=== PATIENT | male | born 1975 | race Caucasian/White ===

== ENCOUNTER 2020-10-18 11:07 | Outpatient (REF) | payer OTHER, SELFPAY ==
[2020-10-18 13:00] LABS: MANUAL DIFF FLAG NO
[2020-10-18 13:13] LABS: Basophils Percent Auto 0.5 % (0-2); Eosinophils Absolute Auto 0.2 X10*3/uL (0.0-0.4); Eosinophils Percent Auto 3.8 % (0-4); Hematocrit 44.2 % (42-52); Imm Gran Abs Auto 0.03 X10*3/uL (0.00-0.03); Imm Gran Pct Auto 0.5 % (0.0-0.4); Lymphocytes Absolute Auto 2.1 X10*3/uL (1.2-4.9); Lymphocytes Percent Auto 34.5 % (20-40); Mean Corpuscular HGB Conc 33.9 g/dl (31.0-36.0); Mean Corpuscular Volume 91.3 fL (80-98); Mean Platelet Volume 8.5 fL (9.4-12.4); Monocytes Absolute Auto 0.4 X10*3/uL (0.1-1.2); Monocytes Percent Auto 6.6 % (2-11); Neutrophils Absolute Auto 3.3 X10*3/uL (2.0-8.3); Neutrophils Percent Auto 54.1 % (45-73); Platelet Count 217 X10*3/uL (160-400); Red Blood Count 4.84 X10*6/uL (4.60-5.80); Red Cell Distribution Width 12.1 % (11.0-16.0); White Blood Count 6.1 X10*3/uL (4.8-10.8)
[2020-10-18 13:39] LABS: Alanine Aminotransferase 40 U/L (0-40); Albumin Level 4.5 g/dL (3.5-5.0); Alkaline Phosphatase 65 U/L (39-117); Anion Gap 14 (12-20); Aspartate Amino Transferase 22 U/L (5-37); Bilirubin Total 1.1 mg/dL (0.0-1.0); Blood Urea Nitrogen 14 mg/dL (9-16); Calcium 9.2 mg/dL (8.4-10.2); Carbon Dioxide 27 mmol/L (22-29); Chloride 106 mmol/L (96-108); Cholesterol 201 mg/dL; Estimated Glomerular Filt Rate > 60; Glucose Random 99 mg/dL (60-115); HDL Cholesterol 40 mg/dL; LDL Cholesterol Calculated 122 mg/dl; Sodium 143 mmol/L (135-145); Total Protein 7.1 g/dL (6.5-8.0); Triglycerides 199 mg/dL
[2020-10-18 14:00] LABS: Prostate Specific Antigen 1.04 ng/mL (<0.05-4.0)
== END 2020-10-18 11:08 | disposition home or self-care (01) ==
LOC: HO.10HDL 11:07
PROVIDERS: PCP Internal Medicine Medical Oncology; Visit Provider Internal Medicine Medical Oncology
DX: Z00.00 Encounter for general adult medical examination without abnormal findings (principal); J45.909 Unspecified asthma, uncomplicated; E66.9 Obesity, unspecified; Z87.891 Personal history of nicotine dependence
CPT/HCPCS: 36415; 80053; 80061; 84153; 85025

== ENCOUNTER 2021-01-31 09:34 | Outpatient (REF) | payer OTHER, SELFPAY ==
--- NOTE | ~2021-01-31 | US_ITS ---
EXAMINATION: US ABDOMEN COMPLETE CLINICAL INFORMATION: Nausea with vomiting. Right upper quadrant pain COMPARISON: None TECHNIQUE: Real-time imaging of the abdominal viscera. Technically difficult study secondary to bowel gas and body habitus. FINDINGS: The exam due to body habitus and gas. PANCREAS: Most of the pancreas is obscured by overlying gas. ABDOMINAL AORTA: The proximal, mid, and distal segments are normal in caliber. INFERIOR VENA CAVA: IVC is not visualized. LIVER: The liver is normal in size. The liver contour is normal. There is increased liver echogenicity. No focal hepatic lesion. There is no intrahepatic biliary duct dilatation seen. GALLBLADDER: Gallbladder wall thickness measures 0.18 cm. The gallbladder is physiologically distended without evidence of stones, sludge, polyps, wall thickening or pericholecystic fluid. COMMON BILE DUCT: Normal in caliber measuring 0.6 cm in diameter. 0.55 cm RIGHT KIDNEY: Normal. No hydronephrosis. No renal calculi or focal parenchymal lesions. The kidney measures 11.8 cm in maximum dimension. LEFT KIDNEY: Normal. No hydronephrosis. No renal calculi or focal parenchymal lesions. The kidney measures 11.1 cm in maximum dimension. SPLEEN: Normal. The spleen measures 11.4 cm in maximum dimension. FREE FLUID: None. US/US abdomen complete IMPRESSION: Limited abdominal exam secondary to gas and body habitus. Hepatic steatosis without focal lesion. Rest of the abdominal ultrasound is unremarkable.
== END 2021-01-31 09:35 | disposition home or self-care (01) ==
LOC: HO.HMGCX 09:34
PROVIDERS: Visit Provider Internal Medicine Medical Oncology
DX: R11.2 Nausea with vomiting, unspecified (principal); R68.81 Early satiety
CPT/HCPCS: 76700

== ENCOUNTER 2021-02-08 09:36 | Outpatient (REF) | payer OTHER, SELFPAY ==
--- NOTE | ~2021-02-08 | FL_ITS ---
EXAMINATION: XR FLUOROSCOPY UPPER GI WITH AIR CLINICAL INFORMATION: Early satiety. COMPARISON: None. TECHNIQUE: Upper GI was performed using thin and thick barium and effervescent granules. FINDINGS: There is gastroesophageal reflux. No hernia is seen. The stomach and duodenum are normal appearing. No fold thickening, mass, ulcer or stricture is seen. FLUOROSCOPY TIME: 0.7 minutes. DOSE AREA PRODUCT: 6.8 Gy-cm2. SAVED FLUOROSCOPIC IMAGES: 23. FL/FL upper GI w air IMPRESSION: Gastroesophageal reflux. Otherwise unremarkable exam.
== END 2021-02-08 09:37 | disposition home or self-care (01) ==
LOC: HO.XRAY 09:36
PROVIDERS: Visit Provider Internal Medicine Medical Oncology
DX: R11.2 Nausea with vomiting, unspecified (principal); R68.81 Early satiety
CPT/HCPCS: 74246

== ENCOUNTER 2021-03-30 08:48 | Day surgery (SDC) | payer OTHER, SELFPAY ==
--- NOTE | 2021-03-29 08:32 | P.CONAN_ITS ---
Documented by User: Gillian Pantoja NP 03/29/21 08:33 HPI - Anesthesia Eval Consult details Narrative: 45yo M for Upper Endoscopy [facility] Past Medical History Medical History Asthma GERD (gastroesophageal reflux disease) Seasonal allergies Surgical History Surgical History (Updated 03/30/21 @ 09:45 by Rema Lobo MD) Hx of fracture of lower leg Hx of hand surgery Social History Social History Patient Tobacco Use Status: Former Tobacco user Quit Date: 2006 Tobacco use type: Cigarette Smoked in Last 30 Days: No Use of substances other than those prescribed or required for medical reasons: No Are you DNR?: No Advance Directives: No Advance Directives Information Provided: Yes Meds Allergies Allergy/AdvReac Type Severity Reaction Status Date / Time Penicillins [PCN] Allergy Unknown Verified 03/30/21 09:54 Sulfa (Sulfonamide Allergy Unknown Verified 03/30/21 09:54 Antibiotics) environmental Allergy Sneezing Uncoded 03/30/21 09:54 oil base Allergy Sneezing Uncoded 03/30/21 09:54 tree fruits Allergy Itching Uncoded 03/30/21 09:54 Home Medications Medication Instructions Recorded Confirmed Last Taken Type Men's One Daily 03/30/21 03/30/21 Unknown History Zyrtec 03/30/21 Unknown History omeprazole 20 mg 1 cap PO DAILY 03/30/21 03/30/21 Unknown History capsule,delayed release Exam Exam Date and Time: March 29, 2021 0832 Pertinent Lab Results Pertinent Lab Results: Laboratory Tests 10/18/20 10/18/20 11:12 11:12 WBC 6.1 Hgb 15.0 Hct 44.2 Plt Count 217 Sodium 143 Potassium 4.0 Chloride 106 Carbon Dioxide 27 BUN 14 Creatinine 1.06 Assessment and Plan Assessment Anesthesia Assessment: Chart Reviewed Documented by User: Rema Lobo MD 03/30/21 09:55 [facility] Past Medical History Medical History Asthma GERD (gastroesophageal reflux disease) Seasonal allergies Family History Family history of problems with anesthesia: No Surgical History Surgical History (Updated 03/30/21 @ 09:45 by Rema Lobo MD) Hx of fracture of lower leg Hx of hand surgery History of Problems with Anesthesia: No Social History Social History Patient Tobacco Use Status: Former Tobacco user Quit Date: 2006 Tobacco use type: Cigarette Smoked in Last 30 Days: No Use of substances other than those prescribed or required for medical reasons: No Are you DNR?: No Advance Directives: No Advance Directives Information Provided: Yes Meds Allergies Allergy/AdvReac Type Severity Reaction Status Date / Time Penicillins [PCN] Allergy Unknown Verified 03/30/21 09:54 Sulfa (Sulfonamide Allergy Unknown Verified 03/30/21 09:54 Antibiotics) environmental Allergy Sneezing Uncoded 03/30/21 09:54 oil base Allergy Sneezing Uncoded 03/30/21 09:54 tree fruits Allergy Itching Uncoded 03/30/21 09:54 Home Medications Medication Instructions Recorded Confirmed Last Taken Type Men's One Daily 03/30/21 03/30/21 Unknown History Zyrtec 03/30/21 Unknown History omeprazole 20 mg 1 cap PO DAILY 03/30/21 03/30/21 Unknown History capsule,delayed release Exam Height,Weight and Vital Signs: Height 5 ft 10 in Weight 103.419 kg Vital Signs Temp Pulse Resp BP Pulse Ox 03/30/21 09:41 97.1 F 83 16 129/86 97 Airway Mallampati Class: II TM Dist: >3cm Neck ROM: Full Loose/Missing/Broken Teeth: No Heart: RRR Lungs: CTAB Assessment and Plan Assessment Anesthesia Assessment: Anesthesia Plan Discussed Final Anesthetic Review Family History of Problems with Anesthesia: No History of Problems with Anesthesia: No NPO: Yes ASA Class: II Final Preanesthetic Review: No Changes in Pt Med Stat, Meds/Allgs Chart Reviewed, Consent Obtained/Reviewed and Anes Risks/Benef Reviewed Patient Risk: Low Procedure Risk: Low Assessment/Block/Sedation in SS: Assess/Block/Sedation-SS Anesthetic Plan Anesthetic Plan: MAC: Disposition: Standard PACU
[2021-03-30 09:31] VITALS: BMI 32.7
[2021-03-30 09:41] VITALS: BP 129/86; PULSE 83; RESP 16; TEMP 36.2; O2SAT 97
[2021-03-30] MEDS: Lactated Ringers 1,000 ML 100 ML IVCONT (09:51)
[2021-03-30 10:47] VITALS: BP 102/67; PULSE 85; RESP 20; TEMP 36.7; O2SAT 98
--- NOTE | 2021-03-30 10:50 | PM.OP ---
Brief Operative Note Date of Service: 03/30/21 Pre-op diagnosis: GERD Post-op diagnosis: other (Hiatal hernia, Gastric polyps) Procedure: EGD with biopsies Surgeon: Tristin Moss Anesthesia: MAC Was an Optimization Engineer used for this Procedure?: No Estimated blood loss (mL): 2.0 Pathology: other (A. Gastric antrum B. Gastric polyps C. EG Junction at 36cm) Condition: stable Disposition: PACU
[2021-03-30 11:01] VITALS: BP 112/72; PULSE 93; RESP 18; TEMP 36.7; O2SAT 96
--- NOTE | 2021-03-31 12:18 | OP_ITS ---
SURGEON: Tristin Moss MD INDICATIONS: The patient presents for evaluation of gastroesophageal reflux and abdominal discomfort. Full consent was obtained from him for this, including risks of bleeding and perforation. PREOPERATIVE DIAGNOSIS: POSTOPERATIVE DIAGNOSIS: PROCEDURE PERFORMED: Esophagogastroduodenoscopy with biopsies. ESTIMATED BLOOD LOSS: COMPLICATIONS: ANESTHESIA: Monitored anesthesia care. ASSISTANTS: SPECIMENS: PREOPERATIVE DIAGNOSES: Gastroesophageal reflux and abdominal discomfort. POSTOPERATIVE DIAGNOSES: Gastroesophageal reflux, abdominal discomfort, hiatal hernia, gastric polyps, rule out gastritis. DESCRIPTION OF PROCEDURE: The patient was placed in the left lateral decubitus position. The Olympus video gastroscope was passed in the posterior oropharynx and upper esophagus under direct vision. The scope was passed slowly into the distal esophagus. The gastroesophageal junction appeared at 36 cm. There was no sign of any esophagitis nor any definitive Gallo's mucosa. There was some slight irregularity. The scope entered into the stomach. There was a small hiatal hernia. The scope was advanced to the pylorus and the duodenum was cannulated in the descending portion. The duodenum including the bulb appeared normal without mass or ulceration. The scope was withdrawn back in the stomach. The gastric antrum had some slight areas of erythema, but no erosions or ulceration. There was good peristalsis. The scope was retroflexed visualizing the proximal stomach carefully, which appeared normal, without any sign of mass or ulceration other than multiple hyperplastic-appearing gastric polyps. Scope was straightened. Biopsies were obtained from the gastric antrum. I also obtained biopsies from some of the gastric polyps. The scope was withdrawn back to the esophagus. Biopsies were obtained at the EG junction at 36 cm. Proximal to this, the esophageal mucosa appeared normal. The scope was withdrawn from the patient. He tolerated the procedure well and was returned to recovery area in stable condition. IMPRESSION: 1. Hiatal hernia, history of gastroesophageal reflux, rule out Gallo esophagus. 2. Gastric polyps. PLAN: The results of biopsies will be checked. If Helicobacter pylori is present in the gastric biopsies, I would not necessarily treat that at this time. He was advised to continue his daily omeprazole for symptomatic relief of reflux. He will use dicyclomine or [id number] anti-gas medicine for the right lateral abdominal discomfort. He was advised to see me in several months for a followup visit. MD FLORIN Barillas/SAEED / [id number]
== END 2021-03-30 11:54 | disposition home or self-care (01) ==
PROVIDERS: PCP Internal Medicine Medical Oncology; Visit Provider Internal Medicine
PROC: 0DJ08ZZ Inspection of Upper Intestinal Tract, Via Natural or Artificial Opening Endoscopic (ICD-10-PCS; CPT 43235; principal; 2021-03-30 10:10)
DX: K21.9 Gastro-esophageal reflux disease without esophagitis (principal); K31.7 Polyp of stomach and duodenum; J45.909 Unspecified asthma, uncomplicated; Z79.899 Other long term (current) drug therapy; Z88.0 Allergy status to penicillin; Z88.2 Allergy status to sulfonamides; Z87.891 Personal history of nicotine dependence; K44.9 Diaphragmatic hernia without obstruction or gangrene
CPT/HCPCS: 43239; 88305; 88342

== ENCOUNTER 2023-01-01 09:21 | Day surgery (SDC) | payer OTHER, SELFPAY ==
[2023-01-01 10:25] VITALS: BMI 30.1
[2023-01-01 10:41] VITALS: BP 118/78; PULSE 76; RESP 16; TEMP 36.2; O2SAT 97
[2023-01-01] MEDS: Lactated Ringers 1,000 ML 50 ML IVCONT (10:46)
--- NOTE | 2023-01-01 11:17 | HO.ANESPROP2 ---
HPI - Anesthesia Eval Consult details Narrative: 47 yo M presenting for colonoscopy [facility] Past Medical History Medical History Seasonal allergies GERD (gastroesophageal reflux disease) Asthma Family History Family history of problems with anesthesia: No Surgical History Surgical History Hx of fracture of lower leg Hx of hand surgery History of Problems with Anesthesia: No Social History Social History Patient Tobacco Use Status: Former Tobacco user Quit Date: 15 years ago Tobacco use type: Cigarette Use of substances other than those prescribed or required for medical reasons: No Are you DNR?: No Advance Directives: No Advance Directives Information Provided: Yes Meds Allergies Allergy/AdvReac Type Severity Reaction Status Date / Time Penicillins [PCN] Allergy Unknown Verified 01/01/23 10:44 Sulfa (Sulfonamide Allergy Unknown Verified 01/01/23 10:44 Antibiotics) environmental Allergy Sneezing Uncoded 01/01/23 10:44 oil base Allergy Sneezing Uncoded 01/01/23 10:44 tree fruits Allergy Itching Uncoded 01/01/23 10:44 Active Medications: Current Medications Lactated Ringer's (Lr) 1,000 mls @ 50 mls/hr IVCONT .Q20H JACQUIE Last Admin: 01/01/23 10:46 Dose: 50 mls/hr Sodium Biphosphate/Sodium Phosphate (Sodium Phosphate,Garfield-Dibasic 133 Ml Enema) 133 ml IA ONCE PRN PRN Reason: Poor Colonoscopy Prep Results Home Medications Medication Instructions Recorded Confirmed Last Taken Type Zyrtec 1 tab PO DAILY 03/30/21 01/01/23 12/31/22 History omeprazole 20 mg capsule,delayed 1 cap PO DAILY 03/30/21 01/01/23 12/31/22 History release Exam Exam Date and Time: January 01, 2023 1117 Height,Weight and Vital Signs: Height 5 ft 10 in Weight 95.254 kg Last Vital Signs Temp 97.2 F 01/01/23 10:41 Pulse 76 01/01/23 10:41 Resp 16 01/01/23 10:41 BP 118/78 01/01/23 10:41 Pulse Ox 97 01/01/23 10:41 O2 Del Method Room Air 01/01/23 10:41 Airway Mallampati Class: I TM Dist: >3cm Neck ROM: Full Loose/Missing/Broken Teeth: No Heart: S1S2 Lungs: CTAB Assessment and Plan Assessment Anesthesia Assessment: Anesthesia Plan Discussed and Chart Reviewed Final Anesthetic Review Family History of Problems with Anesthesia: No History of Problems with Anesthesia: No NPO: Yes ASA Class: II Final Preanesthetic Review: No Changes in Pt Med Stat, Meds/Allgs Chart Reviewed, Consent Obtained/Reviewed and Anes Risks/Benef Reviewed Patient Risk: Low Procedure Risk: Low Anesthetic Plan Anesthetic Plan: MAC: and Agree w/ Assess. and Plan Disposition: Standard PACU
[2023-01-01 12:18] VITALS: BP 89/39; PULSE 77; RESP 16; TEMP 36.2; O2SAT 97
--- NOTE | 2023-01-01 12:21 | P.BOP_ITS ---
Brief Operative Note Date of Service: 01/01/23 Pre-op diagnosis: Screening Post-op diagnosis: other (Polyps) Procedure: Colonoscopy to the cecum and TI with biopsies of ? of ascending colon polyp, and cold snare polypectomy of ascending colon polyp Surgeon: Tristin Moss MD Anesthesia: MAC Was an Food Services Director used for this Procedure?: No Estimated blood loss (mL): 2.0 Pathology: other (A. Ascending colon, ? polyp B. Ascending colon polyp) Condition: stable Disposition: PACU
[2023-01-01 12:33] VITALS: BP 100/40; PULSE 77; RESP 16; TEMP 36.2; O2SAT 100
--- NOTE | 2023-01-01 12:37 | OP_ITS ---
DATE OF SERVICE: 01/01/2023 SURGEON: Tristin Moss MD INDICATIONS: The patient presents for evaluation of colorectal cancer screening. Full consent has been obtained from him for this, including risks of bleeding and perforation. PREOPERATIVE DIAGNOSIS: Colorectal cancer screening. POSTOPERATIVE DIAGNOSIS: PROCEDURE PERFORMED: Colonoscopy to cecum and terminal ileum with biopsy and removal of possible polyp, and cold snare polypectomy. ESTIMATED BLOOD LOSS: COMPLICATIONS: ANESTHESIA: Monitored anesthesia care. ASSISTANTS: SPECIMENS: POSTOPERATIVE DIAGNOSES: Colorectal cancer screening, colon polyps, internal hemorrhoids. DESCRIPTION OF PROCEDURE: The patient was placed in the left lateral decubitus position. The digital rectal exam revealed no abnormalities. The Olympus video pediatric colonoscope was entered into the rectum and advanced to the cecum. In the cecum, I did identify a normal-appearing cecal pouch with appendical orifice and a normal-appearing ileocecal valve. The terminal ileum was cannulated and appeared normal. The scope was slowly withdrawn back in the colon. The entire cecum and ileocecal valve appeared normal. The scope was then slowly withdrawn assessing all mucosal surfaces carefully. Preparation was excellent. In the mid-ascending colon was a somewhat edematous fold which I did not think definitively represented a polyp, but multiple biopsies were obtained from it. Just distal to that was an approximately 5 mm polyp, which was removed by cold snare polypectomy and recovered by suction. The polypectomy site appeared clean, without any sign of residual polyp nor significant bleeding. This was placed in a different container. I did not visualize any other polyps, colitis, nor angiodysplasia. In the rectum, scope was retroflexed visualizing small internal hemorrhoids, but no other pathology. The rectal mucosa appeared normal. The scope was straightened and withdrawn from the patient. He tolerated the procedure well and was returned to the recovery area in stable condition. IMPRESSION: 1. Colon polyp, status post cold snare polypectomy. 2. Question of ascending colon polyp, status post biopsies. 3. Internal hemorrhoids. PLAN: The results of the pathology will be checked, If the ascending colon biopsies are not adenomatous but the polyp is a tubular adenoma, I would recommend a followup colonoscopy within 5 years. If the ascending colon biopsies are adenomatous I would recommend a repeat colonoscopy within 1 to 2 years to reinspect the area and be sure no further tissue needs to be removed. If both areas are nonadenomatous I would then recommend a repeat colonoscopy in 10 years for further screening. He was advised not to use any aspirin and NSAIDs for 1 week. He was advised to undergo a repeat upper endoscopy in 2024, in regard to the previous finding of Gallo's esophagus. This has been discussed with his . MD FLORIN Barillas/SAEED / [id number] MTDD
== END 2023-01-01 14:08 | disposition home or self-care (01) ==
PROVIDERS: PCP Internal Medicine Medical Oncology; Visit Provider Internal Medicine
PROC: 0DJD8ZZ Inspection of Lower Intestinal Tract, Via Natural or Artificial Opening Endoscopic (ICD-10-PCS; CPT 45378; principal; 2023-01-01 10:40)
DX: Z12.11 Encounter for screening for malignant neoplasm of colon (principal); D12.2 Benign neoplasm of ascending colon; K64.8 Other hemorrhoids; K21.9 Gastro-esophageal reflux disease without esophagitis; J45.909 Unspecified asthma, uncomplicated; Z79.899 Other long term (current) drug therapy; Z87.891 Personal history of nicotine dependence
CPT/HCPCS: 45385; 45380; 88305

== ENCOUNTER 2023-10-05 08:53 | Outpatient (REF) | payer OTHER, SELFPAY ==
[2023-10-05 10:02] LABS: Basophils Percent Auto 0.6 % (0-2); Eosinophils Absolute Auto 0.2 X10*3/uL (0.0-0.4); Eosinophils Percent Auto 3.4 % (0-4); Hematocrit 44.4 % (42.0-52.0); Hemoglobin 15.2 g/dl (14.0-18.0); Imm Gran Abs Auto 0.02 X10*3/uL (0.00-0.03); Imm Gran Pct Auto 0.3 % (0.0-0.4); Lymphocytes Absolute Auto 2.3 X10*3/uL (1.2-4.9); Lymphocytes Percent Auto 35.3 % (20-40); MANUAL DIFF FLAG SCAN; Mean Corpuscular HGB Conc 34.2 g/dl (31.0-36.0); Mean Corpuscular Hemoglobin 31.3 pg (27.0-33.0); Mean Corpuscular Volume 91.4 fL (80.0-98.0); Mean Platelet Volume 8.8 fL (9.4-12.4); Monocytes Absolute Auto 0.4 X10*3/uL (0.1-1.2); Monocytes Percent Auto 6.3 % (2-11); Neutrophils Absolute Auto 3.5 x10*3/uL (2.0-8.3); Neutrophils Percent Auto 54.1 % (45-73); PLT CLUMP 1; Red Blood Count 4.86 X10*6/uL (4.60-5.80); SCAN SMEAR FLAG 1
[2023-10-05 10:42] LABS: Alanine Aminotransferase 40 U/L (0-40); Albumin Level 4.5 g/dL (3.5-5.0); Alkaline Phosphatase 58 U/L (39-117); Anion Gap 12 (12-20); Aspartate Amino Transferase 23 U/L (5-37); Bilirubin Total 0.6 mg/dL (0.0-1.0); Blood Urea Nitrogen 13 mg/dL (9-16); Carbon Dioxide 30 mmol/L (22-29); Chloride 104 mmol/L (96-108); Cholesterol 223 mg/dL (<200); Estimated Glomerular Filt Rate > 60; Glucose Fasting 99 mg/dL (60-99); HDL Cholesterol 43 mg/dL (>40); LDL Cholesterol Calculated 128 mg/dL (<100); Potassium 4.2 mmol/L (3.3-5.1); Sodium 142 mmol/L (135-145); Total Protein 7.2 g/dL (6.5-8.0); Triglycerides 263 mg/dL (<150)
[2023-10-05 10:51] LABS: Platelet Count 222 X10*3/uL (160-400); White Blood Count 6.5 X10*3/uL (4.8-10.8)
[2023-10-05 10:52] LABS: SLIDE REVIEW VERIFIED
== END 2023-10-05 08:54 | disposition home or self-care (01) ==
LOC: HO.LAB 08:53
PROVIDERS: PCP Internal Medicine Medical Oncology; Visit Provider Internal Medicine Medical Oncology
DX: Z12.5 Encounter for screening for malignant neoplasm of prostate (principal); E66.9 Obesity, unspecified; N40.0 Benign prostatic hyperplasia without lower urinary tract symptoms
CPT/HCPCS: 36415; 80053; 80061; 84153; 85025

== ENCOUNTER 2023-12-07 16:49 | Outpatient (REF) | payer OTHER, SELFPAY ==
[2023-12-07 17:30] LABS: Appearance Urine Cloudy; Color Urine Yellow; Glucose Urine UA Negative (Negative); Leukocyte Esterase Urine Small (1+) (Negative); Nitrite Urine Negative (Negative); PH 5.5 (5.0-9.0); Specific Gravity - Urine >= 1.030 (1.005-1.025); UMIC TRIGGER UA YES; Urine Blood Large (3+) (Negative); Urine Ketones Negative (Negative); Urine Protein 30 (1+) mg/dL (Neg-Trace)
[2023-12-07 17:37] LABS: Bacteria Urine None Seen (None Seen); Hyaline Casts Urine 0-2 /LPF (0-2); RBC Urine >20 /HPF (0-2); WBC Urine 21-50 /HPF (0-5)
== END 2023-12-07 16:50 | disposition home or self-care (01) ==
LOC: HO.LAB 16:49
PROVIDERS: PCP Internal Medicine Medical Oncology; Visit Provider Internal Medicine Medical Oncology
DX: R31.9 Hematuria, unspecified (principal); R82.79 Other abnormal findings on microbiological examination of urine
CPT/HCPCS: 81001; 87086; 87088; 87186

== ENCOUNTER 2023-12-08 14:41 | Emergency (ER) | payer OTHER, SELFPAY ==
[2023-12-08 14:43] VITALS: BP 141/101; PULSE 90; RESP 18; TEMP 36.1; O2SAT 98; BMI 32.5
--- NOTE | 2023-12-08 14:48 | ED.MALEGU ---
HPI - Male Genitourinary General Chief complaint: Urogenital-Male Stated complaint: UTI Time Seen by Provider: 12/08/23 15:33 Source: patient Mode of arrival: ambulatory Limitations: no limitations History of Present Illness ED Provider: Edie Dee APRN HPI Narrative: 48 yo male previously healthy here with complaints of urinary urgency/hematuria, dysuria, feeling like he is not emptying his bladder completely since evening. NO abdominal pain, flank pain, fever or vomiting. No testicular pain, penile discharge, rashes/lesions. NO new sexual partners. Offered STI testing-declined. Related Data Home Medications ?Medication ?Instructions ?Recorded ?Confirmed Zyrtec 1 tab PO DAILY 03/30/21 01/01/23 omeprazole 20 mg capsule,delayed 1 cap PO DAILY 03/30/21 01/01/23 release Previous Rx's ?Medication ?Instructions ?Recorded levofloxacin 750 mg tablet 750 mg PO DAILY 7 days #7 tabs 12/08/23 Allergies Allergy/AdvReac Type Severity Reaction Status Date / Time Penicillins [PCN] Allergy Unknown Verified 12/08/23 14:46 Sulfa (Sulfonamide Allergy Unknown Verified 12/08/23 14:46 Antibiotics) environmental Allergy Sneezing Uncoded 01/01/23 10:44 oil base Allergy Sneezing Uncoded 01/01/23 10:44 tree fruits Allergy Itching Uncoded 01/01/23 10:44 Review of Systems Review of Systems: Yes all other systems are reviewed and are negative Constitutional: Constitutional: Reports no additional constitutional complaints, Denies body ache(s), Denies chills, Denies fever(s), Denies headache(s) and Denies weakness Eyes: Eyes: Reports no additional eye complaints and Denies change in vision ENT: Reports system reviewed and no additional complaints, except as documented, Denies dizziness, Denies headache(s), Denies nasal congestion, Denies nasal discharge and Denies neck pain Cardiovascular: Cardiovascular: Reports no additional cardiovascular complaints, Denies chest pain, Denies leg edema and Denies dyspnea Respiratory: Respiratory: Reports no additional respiratory complaints, Denies cough and Denies dyspnea Gastrointestinal: Gastrointestinal: Reports no additional gastrointestinal complaints, Denies abdominal pain, Denies diarrhea, Denies nausea and Denies vomiting Genitourinary: Genitourinary: Reports hematuria, Reports dysuria, Denies flank pain, Denies penile discharge, Denies scrotal swelling, Denies testicular mass, Denies testicular pain, Reports urinary frequency, Reports urinary hesitancy, Denies urinary incontinence and Reports urinary urgency Musculoskeletal: Musculoskeletal: Reports no additional musculoskeletal complaints, Denies back pain, Denies arthralgias, Denies joint swelling, Denies neck pain, Denies numbness and Denies tingling Integumentary/Breasts: Skin/Breast: Reports system reviewed and no additional complaints, except as docu and Denies rash Neurologic: Reports system reviewed and no additional complaints, except as documented, Denies Abnormal speech present, Denies dizziness, Denies headache(s), Denies numbness, Denies tingling and Denies weakness PMFSH Past Medical History Attestation statement: The following information was validated with the patient. Source: old records reviewed and nursing notes reviewed Medical History Seasonal allergies GERD (gastroesophageal reflux disease) Asthma Surgical History Hx of fracture of lower leg Hx of hand surgery Social History Social History Patient Tobacco Use Status: Former Tobacco user Tobacco use type: Cigarette Physical Exam Vital Signs: Vital Signs: Last Vital Signs Temp 97.0 F 12/08/23 14:43 Pulse 90 12/08/23 14:43 Resp 18 12/08/23 14:43 BP 141/101 H 12/08/23 14:43 Pulse Ox 98 12/08/23 14:43 O2 Del Method Room Air 12/08/23 14:43 BMI result Body Mass Index 32.5 Const: General: cooperative, healthy appearing, comfortable and no acute distress Orientation/consciousness: patient oriented x3 Limitations: no limitations HEENT: Head: Yes normal to inspection Ears: hearing grossly normal bilaterally General nose exam: Normal external nose present Face and sinus: Yes normal facial exam Mouth: Normal oral and palatal mucosa present Throat: Yes posterior oropharynx normal Eyes: General: appearance normal, both eyes and all related structures Pupils: Equal, round and reactive pupils present Neck: Neck: Yes normal visual inspection Chest: Chest palpation & inspection: normal inspection of the chest Resp: Effort & Inspection: normal respiratory effort Auscultation: clear to auscultation bilaterally Cardio: Rate: regular rate Rhythm: regular rhythm Peripheral pulses: Peripheral pulses 2+ throughout GI: Inspection: Yes normal to inspection Palpation (GI): Soft to palpation and nontender Auscultation: normal bowel sounds : Other: Deferred Back/Spine/Pelvis: Thoracic/Lumbar Spine: thoracic and lumbar spine normal to inspection Skin: General skin exam: no rashes or lesions noted Neuro: General: patient oriented x3, no focal motor deficits and normal sensation to monofilament Cranial nerves: Yes Equal, round and reactive pupils present Cognition (Neuro): normal cognition Speech: No Abnormal speech present Gait exam (Neuro): Normal gait present Motor exam (neuro): 5/5 motor strength present throughout Extrem: General: Yes normal to inspection Course Course Course Narrative: RME performed by Tanya Espinoza PA-C. Patient is a 48 year old assigned male at presenting to the emergency department with increased urinary urgency. Patient states he has been having increased urinary urgency and pain with urination. Detailed physical exam and review of systems are deferred to the environmental restoration planner. UA ordered. Patient placed back in the waiting room pending room availability and results. Medical Decision Making Medical Decision Making [facility] Narrative: 48 yo male previously healthy here with complaints of urinary urgency/hematuria, dysuria, feeling like he is not emptying his bladder completely since evening. NO abdominal pain, flank pain, fever or vomiting.No testicular pain, penile discharge, rashes/lesions. NO new sexual partners. Offered STI testing-declined. exam declined No focal abdominal pain/flank pain Differential Diagnosis Differential Diagnoses: The differential diagnosis associated with the presentation includes UTI, STI, BPH. Low suspicion for renal colic, pyelonephritis, testicular torsion, prostatitis, epididymitis due to clinical exam. Admission/Observation Consideration of admission/observation: Escalation of care including admission/observation considered UA is consistent with UTI with no evidence of pyelonephritis or renal colic requiring advanced imaging, urgent urology consultation and or admission. Lab Data [facility] Lab Attestation statement: I reviewed the patient's lab results. Labs: Lab Results 12/08/23 Range/Units 14:56 Urine Color BROWN Urine Appearance Cloudy Urine pH 5.5 (5.0-9.0) Ur Specific [place] >= 1.030 H (1.005-1.025) Urine Protein 300 (3+) H (Neg-Trace) mg/dL Urine Glucose (UA) Negative (Negative) mg/dL Urine Ketones Negative (Negative) mg/dL Urine Blood Large (3+) H (Negative) Urine Nitrite Positive H (Negative) Ur Leukocyte Esterase Trace H (Negative) Urine RBC >20 H (0-2) /HPF Urine WBC >50 H (0-5) /HPF Ur Squamous Epith Cells 0-2 (0-2) /HPF Urine Bacteria None Seen (None Seen) Hyaline Casts 0-2 (0-2) /LPF Tests considered The following testing was considered but not selected: UA is consistent with UTI with no evidence of pyelonephritis or renal colic requiring advanced imaging, Prescription Management I considered prescription management with: Antibiotic Discharge Plan Discharge Clinical Impression: Urinary tract infection Patient Disposition: Home, Self-Care Instructions: Urinary Tract Infection in Men (ED) Additional Instructions: Take the antibiotic as prescribed Increase fluids at home Follow up with primary care doctor as needed Return for worsening symptoms Prescriptions: New levofloxacin 750 mg tablet 750 mg PO DAILY 7 Days Qty: 7 0RF No Action omeprazole 20 mg capsule,delayed release(DR/EC) 1 cap PO DAILY Zyrtec 1 tab PO DAILY Referrals: Tristin Pineda MD [Primary Care Provider] - 1 week Print Language: Serbian
[2023-12-08 15:05] LABS: Appearance Urine Cloudy; Color Urine BROWN; Glucose Urine UA Negative (Negative); Leukocyte Esterase Urine Trace (Negative); Nitrite Urine Positive (Negative); PH 5.5 (5.0-9.0); Specific Gravity - Urine >= 1.030 (1.005-1.025); UMIC TRIGGER UACC YES; Urine Blood Large (3+) (Negative); Urine Ketones Negative (Negative); Urine Protein 300 (3+) mg/dL (Neg-Trace)
[2023-12-08 15:26] LABS: Bacteria Urine None Seen (None Seen); Hyaline Casts Urine 0-2 /LPF (0-2); RBC Urine >20 /HPF (0-2); Squamous Epithelial Cell Urine 0-2 /HPF (0-2); UACC Culture Trigger YES; WBC Urine >50 /HPF (0-5)
--- NOTE | 2023-12-08 15:59 | PC.NURSE ---
post void bladder scan performed, pt had 0 residual
[2023-12-08 16:19] VITALS: BP 121/76; PULSE 90; RESP 16; TEMP 36.4; O2SAT 98
== END 2023-12-08 16:20 | disposition home or self-care (01) ==
PROVIDERS: Physician Assistant Medical; Emergency Provider Emergency Medicine; PCP Internal Medicine Medical Oncology
DX: N39.0 Urinary tract infection, site not specified (principal)
CPT/HCPCS: 81001; 99283